=== PATIENT | female | born 1990 | race Hispanic/Latino ===

== ENCOUNTER 2022-05-22 23:17 | Emergency (ER) | payer SELFPAY ==
[2022-05-22] MEDS ORDERED: ONDANSETRON 4 MG (ODT) TAB ONE (23:36)
[2022-05-23 00:48] LABS: Urine Blood Trace-intact (Negative); Urine Glucose Negative (Negative); Urine Protein Trace (Negative)
[2022-05-23 00:53] LABS: Absolute Lymphocytes (CBC) 1.1 K/uL (0.7-4.9); Hematocrit 41.7 % (36.0-45.0); MCV 82.3 fL (80-100); MPV 7.8 fL (7.6-11.3); RBC Red Blood Cell Count 5.06 M/uL (3.86-4.86)
[2022-05-23 01:18] LABS: Urine Bacteria <20 /HPF (<20); Urine RBC <5 /HPF (None Seen)
[2022-05-23 01:20] LABS: Albumin 4.6 g/dL (3.4-5.0); Bilirubin Total 1.2 mg/dL (0.2-1.0); Potassium 3.1 mmol/L (3.5-5.1)
[2022-05-23] MEDS ORDERED: MORPHINE 2 MG/ML SYR ONE (01:21)
[2022-05-23] MEDS ORDERED: NA CHLORIDE 0.9% 1,000 ML ONE (01:21)
[2022-05-23] MEDS ORDERED: FAMOTIDINE 20 MG/2 ML VIAL IV ONE (01:21)
[2022-05-23] MEDS ORDERED: ONDANSETRON 4 MG/2 ML VIAL ONE (01:21)
[2022-05-23] MEDS ORDERED: PROMETHAZINE INJ 25 MG/ML AMP ONE ×2 (02:04→03:04)
[2022-05-23 02:42] LABS: Barbiturates NEGATIVE (NEGATIVE); Benzodiazepines NEGATIVE (NEGATIVE); Cocaine NEGATIVE (NEGATIVE); METHAMPHETAM NEGATIVE (NEGATIVE); Methadone NEGATIVE (NEGATIVE); Opiates NEGATIVE (NEGATIVE); Phencyclidine NEGATIVE (NEGATIVE); THC Cannibis POSITIVE (NEGATIVE)
[2022-05-23] MEDS ORDERED: POTASSIUM 25 MEQ EFFERV TAB ONE (02:50)
--- NOTE | 2022-05-23 02:53 | EDPHYS ---
Physician Documentation [facility] Name: Soledad Alvarado Age: 32 yrs Sex: Female : 1990 Arrival Date: 05/22/2022 Time: 23:24 Bed 19 Private MD: ED Physician Lasha Tineo HPI: 05/22 23:50 This 32 yrs old Female presents to ER via Ambulatory with complaints of cp Vomiting, Flank Pain. 23:50 The patient presents to the emergency department with nausea, with "dry heaves", cp vomiting, that is continuous, abdominal pain, of the posterior aspect of right lateral abdomen and anterior aspect of right lateral abdomen, described as constant. Onset: The symptoms/episode began/occurred 3 day(s) ago. Possible causes: unknown. Associated signs and symptoms: Pertinent negatives: constipation, diarrhea, fever, GI bleeding. Severity of symptoms: in the emergency department the symptoms are unchanged despite home interventions. 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 - Social history:: Smoking status: unknown. ROS: 23:55 Constitutional: Positive for poor PO intake, Negative for fever. cp 23:55 Eyes: Negative for injury, pain, redness, and discharge. cp 23:55 ENT: Negative for drainage from ear(s), ear pain, sore throat, difficulty swallowing, difficulty handling secretions. 23:55 Respiratory: Negative for cough, shortness of breath, wheezing. 23:55 Abdomen/GI: Positive for nausea and vomiting, Negative for diarrhea, constipation. 23:55 Back: Positive for flank pain, on the right. 23:55 Neuro: Negative for altered mental status, dizziness, headache, weakness. 23:55 All other systems are negative. cp Exam: 23:59 Constitutional: The patient appears in no acute distress, alert, awake, non-toxic, well cp developed, well groomed, uncomfortable. 23:59 Head/Face: Normocephalic, atraumatic. cp 23:59 Eyes: Periorbital structures: appear normal, Conjunctiva: normal, no exudate, no injection, Sclera: no appreciated abnormality, Lids and lashes: appear normal, bilaterally. 23:59 ENT: External ear(s): are unremarkable, Nose: is normal, Mouth: Lips: moist, Oral mucosa: moist, Posterior pharynx: Airway: no evidence of obstruction, patent. 23:59 Chest/axilla: Inspection: normal. 23:59 Cardiovascular: Rate: bradycardic, Rhythm: regular. 23:59 Respiratory: the patient does not display signs of respiratory distress, Respirations: cp normal, no use of accessory muscles, no retractions, labored breathing, is not present, Breath sounds: are clear throughout, no decreased breath sounds, no stridor, no wheezing. 23:59 Abdomen/GI: Inspection: abdomen appears normal, Bowel sounds: active, all quadrants, Palpation: soft, in all quadrants, mild abdominal tenderness, in the posterior aspect of right lateral abdomen and anterior aspect of right lateral abdomen, rebound tenderness, is not appreciated, involuntary guarding, is not appreciated. 23:59 Skin: no rash present. 23:59 Neuro: Orientation: to person, place \\T\\ time. Mentation: is normal, Motor: moves all fours, strength is normal, Sensation: is normal, Gait: is steady, at a normal pace, without difficulty. Vital Signs: 23:32 BP 124 / 88; Pulse 55; Resp 16; Temp 97.7; Pulse Ox 99% on R/A; Weight 52.16 kg; Height hb 5 ft. 3 in. (160.02 cm); Pain /10; 05/23 02:45 BP 110 / 82; Pulse 72; Resp 16; Pulse Ox 99% on R/A; kd3 05/22 23:32 Body Mass Index 20.37 (52.16 kg, 160.02 cm) hb MDM: 05/22 23:42 Patient medically screened. cp 05/23 00:00 Differential diagnosis: gastritis, cholecystitis, pancreatitis, appendicitis, viral cp gastroenteritis, gastroenteritis. 02:50 Data reviewed: vital signs, nurses notes. cp 02:50 Counseling: I had a detailed discussion with the patient and/or guardian regarding: the cp historical points, exam findings, and any diagnostic results supporting the discharge/admit diagnosis, lab results, radiology results, to return to the emergency department if symptoms worsen or persist or if there are any questions or concerns that arise at home. Response to treatment: the patient's symptoms have markedly improved after treatment, and as a result, I will discharge patient. ED course: VSS. Nausea and pain markedly improved, vomiting resolved. Will discharge to home for continued monitoring. 05/22 23:49 Order name: CBC with Diff; Complete Time: 02:04 cp 05/23 02:05 Interpretation: Normal except: RBC 5.06; RG% 80.6; LYM% 11.0. cp 05/22 23:49 Order name: CMP; Complete Time: 02:04 cp 05/23 02:05 Interpretation: Normal except: NA 132; K 3.1; CL 94; GLUC 146; BUN 28; CRE 1.44; GFR cp 50; BILIT 1.2; TP 9.0; GLOB 4.4; A/G 1.0. 05/22 23:49 Order name: Lipase; Complete Time: 02:04 05/23 02:23 Interpretation: Reviewed. 05/22 23:49 Order name: Urine Microscopic Only; Complete Time: 02:04 05/22 23:50 Order name: Influenza Screen (a \\T\\ B); Complete Time: 02:04 cp 05/22 23:50 Order name: COVID-19 SARS RT PCR (Document "Date of Onset" if Symptomatic); Complete cp Time: 02:04 05/22 23:49 Order name: US Abdomen Limited: gallbladder 05/22 23:50 Order name: Strep; Complete Time: 02:04 cp 05/22 23:53 Order name: CT Stone Protocol 05/23 00:48 Order name: Urine --Ancillary (enter results); Complete Time: 02:04 bb 05/23 00:49 Order name: Urine Dipstick-Ancillary; Complete Time: 02:04 EDMS 05/23 02:23 Interpretation: Normal except: UKET 1+; UBLD Trace-intact; UPROT Trace; UESTR Trace. 05/23 01:12 Order name: Throat Culture EDMS 05/23 02:06 Order name: UDS 05/23 02:42 Order name: Urine Drug Screen; Complete Time: 02:46 EDMS 05/22 23:49 Order name: IV Saline Lock; Complete Time: 01:17 cp 05/22 23:49 Order name: Labs collected and sent; Complete Time: 01:17 cp 05/22 23:49 Order name: Urine Dipstick-Ancillary (obtain specimen); Complete Time: 01:17 cp 05/22 23:49 Order name: Urine Test (obtain specimen); Complete Time: 01:17 cp 05/22 23:49 Order name: NPO; Complete Time: 01:17 cp 05/23 02:46 Order name: PO challenge; Complete Time: 02:48 cp Administered Medications: 05/22 23:36 Drug: Zofran (Ondansetron) 4 mg Route: PO; hb 05/23 03:07 Follow up: Response: No adverse reaction; Nausea is decreased kd3 01:27 Drug: NS 0.9% 1000 ml Route: IV; Rate: 1 bolus; Site: left antecubital; kd3 03:13 Follow up: IV Status: Completed infusion kd3 01:27 Drug: Pepcid (famotidine) 20 mg Route: IVP; Site: left antecubital; kd3 03:07 Follow up: Response: No adverse reaction kd3 01:27 Drug: Zofran (Ondansetron) 4 mg Route: IVP; Site: left antecubital; kd3 03:07 Follow up: Response: No adverse reaction; Nausea is decreased kd3 01:27 Drug: morphine 2 mg Route: IVP; Infused Over: 4 mins; Site: left antecubital; kd3 03:07 Follow up: Response: No adverse reaction; Pain is decreased kd3 02:07 Drug: Phenergan (promethazine) 12.5 mg Route: IVP; Site: left antecubital; kd3 03:07 Follow up: Response: No adverse reaction kd3 02:52 Drug: Potassium Effervescent Tablet 50 mEq Route: PO; kd3 03:06 Follow up: Response: No adverse reaction kd3 03:06 Drug: Phenergan (promethazine) 12.5 mg Route: IVP; Site: left antecubital; kd3 03:06 Follow up: Response: No adverse reaction kd3 Disposition Summary: 05/23/22 02:52 Discharge Ordered Location: Home cp Problem: new cp Symptoms: have improved cp Condition: Stable cp Diagnosis - Nausea with vomiting, unspecified cp - Abdominal pain, unspecified cp Followup: cp - With: Private Physician - When: 1 - 2 days - Reason: Worsening of condition Discharge Instructions: - Discharge Summary Sheet cp - Abdominal Pain, Adult cp - Nausea and Vomiting, Adult cp Forms: - Medication Reconciliation Form cp - Thank You Letter cp - Antibiotic Education cp - Prescription Opioid Use cp Prescriptions: - promethazine 25 mg Oral Tablet - take 1 tablet by ORAL route every 6 hours As needed; 20 tablet; Refills: 0, cp Product Selection Permitted - Pepcid 20 mg Oral Tablet - take 1 tablet by ORAL route every 12 hours for 5 days; 10 tablet; Refills: 0, cp Product Selection Permitted Signatures: Dispatcher [employer] EDMS Zeyad Cross PA PA cp Yaritza Pruett RN RN Elizabeth Covarrubias RN RN kd3 Corrections: (The following items were deleted from the chart) 02:05 02:05 Normal except: RBC 5.06. cp cp
--- NOTE | 2022-05-23 02:53 | ER ---
Nurse's Notes [facility] Name: Soledad Alvarado Age: 32 yrs Sex: Female : 1990 Arrival Date: 05/22/2022 Time: 23:24 Bed 19 Private MD: Diagnosis: Nausea with vomiting, unspecified;Abdominal pain, unspecified Presentation: 05/22 23:32 Chief complaint: N/V, left flank pain, difficulty urinating, and dark urine x 3 days. hb Not tolerating fluids. Coronavirus screen: At this time, the client does not indicate any symptoms associated with coronavirus-19. Ebola Screen: No symptoms or risks identified at this time. Risk Assessment: Do you want to hurt yourself or someone else? Patient reports no desire to harm self or others. Onset of symptoms was May 20, 2022. 23:32 Method Of Arrival: Ambulatory hb 23:32 Acuity: DUSTIN 3 hb 05/23 01:28 Initial Sepsis Screen: Does the patient meet any 2 criteria? No. Patient's initial kd3 sepsis screen is negative. Does the patient have a suspected source of infection? No. Patient's initial sepsis screen is negative. Triage Assessment: 01:28 General: Appears uncomfortable, Behavior is calm, cooperative. Pain: Complains of pain kd3 in left low back and right low back. GI: Reports lower abdominal pain, upper abdominal pain. 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 - Social history:: Smoking status: unknown. Screenin/07 01:27 Abuse screen: Denies threats or abuse. Denies injuries from another. Nutritional kd3 screening: No deficits noted. Tuberculosis screening: No symptoms or risk factors identified. Fall Risk IV access (20 points). Assessment: 01:29 GI: Abdomen is non-distended, Pt is actively vomiting bile. kd3 01:30 General: Appears uncomfortable, Behavior is calm, cooperative. Neuro: Level of kd3 Consciousness is awake, alert, obeys commands, Oriented to person, place, time, situation. Cardiovascular: Patient's skin is warm and dry. Respiratory: Airway is patent Trachea midline Respiratory effort is even, unlabored, Respiratory pattern is. GI: Pt is actively vomiting bile. 02:45 Reassessment: Patient and/or family updated on plan of care and expected duration. Pain kd3 level reassessed. Patient is alert, oriented x 3, equal unlabored respirations, skin warm/dry/pink. Patient states feeling better. Patient states symptoms have improved. General: Appears comfortable, Behavior is calm, cooperative. Vital Signs: 05/22 23:32 BP 124 / 88; Pulse 55; Resp 16; Temp 97.7; Pulse Ox 99% on R/A; Weight 52.16 kg; Height hb 5 ft. 3 in. (160.02 cm); Pain 9/10; 05/23 02:45 BP 110 / 82; Pulse 72; Resp 16; Pulse Ox 99% on R/A; kd3 05/22 23:32 Body Mass Index 20.37 (52.16 kg, 160.02 cm) hb ED Course: 05/22 23:24 Patient arrived in ED. ja2 23:33 Triage completed. hb 23:33 Arm band placed on. hb 23:39 Zeyad Cross PA is PHCP. cp 23:39 Lasha Tineo MD is Attending Physician. cp 05/23 00:22 US Abdomen Limited: gallbladder In Process Unspecified. EDMS 01:09 CT Stone Protocol In Process Unspecified. EDMS 01:10 Elizabeth Khan, RN is Primary Nurse. kd3 01:27 Patient has correct armband on for positive identification. kd3 01:27 No provider procedures requiring assistance completed. Inserted saline lock: 22 gauge kd3 in left antecubital area, using aseptic technique. Blood collected. 02:16 UDS Sent. kd3 03:12 IV discontinued, intact, bleeding controlled, No redness/swelling at site. Pressure kd3 dressing applied. Administered Medications: 05/22 23:36 Drug: Zofran (Ondansetron) 4 mg Route: PO; hb 05/23 03:07 Follow up: Response: No adverse reaction; Nausea is decreased kd3 01:27 Drug: NS 0.9% 1000 ml Route: IV; Rate: 1 bolus; Site: left antecubital; kd3 03:13 Follow up: IV Status: Completed infusion kd3 01:27 Drug: Pepcid (famotidine) 20 mg Route: IVP; Site: left antecubital; kd3 03:07 Follow up: Response: No adverse reaction kd3 01:27 Drug: Zofran (Ondansetron) 4 mg Route: IVP; Site: left antecubital; kd3 03:07 Follow up: Response: No adverse reaction; Nausea is decreased kd3 01:27 Drug: morphine 2 mg Route: IVP; Infused Over: 4 mins; Site: left antecubital; kd3 03:07 Follow up: Response: No adverse reaction; Pain is decreased kd3 02:07 Drug: Phenergan (promethazine) 12.5 mg Route: IVP; Site: left antecubital; kd3 03:07 Follow up: Response: No adverse reaction kd3 02:52 Drug: Potassium Effervescent Tablet 50 mEq Route: PO; kd3 03:06 Follow up: Response: No adverse reaction kd3 03:06 Drug: Phenergan (promethazine) 12.5 mg Route: IVP; Site: left antecubital; kd3 03:06 Follow up: Response: No adverse reaction kd3 Medication: 01:29 VIS not applicable for this client. kd3 Outcome: 02:52 Discharge ordered by . afshin 03:12 Discharged to home ambulatory. kd3 03:12 Condition: stable 03:12 Discharge instructions given to patient, family, Instructed on discharge instructions, follow up and referral plans. Demonstrated understanding of instructions, Prescriptions given X 2. 03:16 Patient left the ED. kd3 Signatures: Dispatcher [employer] EDMS Zeyad Cross PA PA cp Baxter, Heather, RN RN Philly Treviño Kyli, RN RN kd3
[2022-05-23 04:05] VITALS: TEMP 97.7; O2SAT 99
[2022-05-23 04:11] VITALS: BP 110/82
--- NOTE | 2022-05-23 11:37 | RAD REPORT ---
EXAM DESCRIPTION: CT - Stone Protocol - 05/23/2022 1:06 am CLINICAL HISTORY: The patient is 32 years old and is Female; Flank pain, kidney stone suspected TECHNIQUE: Axial computed tomography images of the abdomen and pelvis without intravenous contrast. Sagittal and coronal reformatted images were created and reviewed. This CT exam was performed usi ng one or more of the following dose reduction techniques: automated exposure control, adjustment o f the mA and/or kV according to patient size, and/or use of iterative reconstruction technique. COMPARISON: No relevant prior studies available. FINDINGS: Lung bases: Unremarkable. No mass. No consolidation. ABDOMEN: Liver: Unremarkable. Gallbladder and bile ducts: Unremarkable. No calcified stones. No ductal dilation. Pancreas: Unremarkable. No ductal dilation. Spleen: Unremarkable. No splenomegaly. Adrenals: Unremarkable. No mass. Kidneys and ureters: Unremarkable. No obstructing stones. No hydronephrosis. Stomach and bowel: Unremarkable. No obstruction. No mucosal thickening. PELVIS: Appendix: No findings to suggest acute appendicitis. Bladder: There may be diffuse bladder wall thickening, but the bladder is relatively nondistended limiting evaluation. Reproductive: Unremarkable as visualized. ABDOMEN and PELVIS: Intraperitoneal space: Unremarkable. No free air. No significant fluid collection. Bones/joints: No acute fracture. No dislocation. Soft tissues: Unremarkable. Vasculature: Unremarkable. No abdominal aortic aneurysm. Lymph nodes: Unremarkable. No enlarged lymph nodes. IMPRESSION: 1. No evidence of obstructing stone. 2. There may be diffuse bladder wall thickening, but the bladder is relatively nondistended limitin g evaluation. Correlate with any concern for cystitis. Electronically signed by: Yuri Tran MD 05/23/2022 1:52 AM [facility] Due to temporary technical issues with the PACS/Fluency reporting system, reports are being signed by the in house radiologists without review as a courtesy to insure prompt reporting. The interpreting radiologist is fully responsible for the content of the report.
--- NOTE | 2022-05-23 13:21 | RAD REPORT ---
EXAM DESCRIPTION: US - Abdomen Exam Limited - 05/23/2022 12:20 am CLINICAL HISTORY: Abdominal pain COMPARISON: None TECHNIQUE: Grayscale, color Doppler, and duplex Doppler images of right upper abdomen. FINDINGS: No significant free fluid. Liver parenchyma grossly unremarkable and measures cm in length. Common bile duct measuring 4.5 mm diameter and within normal limits. No intra or extrahepatic biliary ductal dilatation. Mildly hyperechoic gallbladder material likely representing biliary sludge. Gallbladder without evidence of stones or inflammation. Negative sonographic Arenas sign. Pancreas not imaged. IMPRESSION: Mild gallbladder sludge. No sonographic evidence of gallstones, acute cholecystitis, or biliary obstruction. 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 The interpreting radiologist is fully responsible for the content of the report.
== END 2022-05-23 03:16 | disposition home or self-care (01) ==
LOC: ER 23:17
DX: R11.2 Nausea with vomiting, unspecified (principal); R10.31 Right lower quadrant pain; Z20.822 Contact with and (suspected) exposure to COVID-19
CPT/HCPCS: 36415; 74176; 76377; 76705; 80053; 80307; 81003; 81015; 81025; 83690; 85025; 87070; 87081; 87804; 96361; 96374; 96375; 99284; J2270; J2405; J2550; J7030; Q0162; U0003